=== PATIENT | female | born 1960 | race Caucasian/White ===

== ENCOUNTER 2022-08-27 08:01 | Outpatient (CLI) | payer BC, SELFPAY ==
--- NOTE | 2022-08-27 08:00 | CRLHL7_ITS ---
For Patients: As a result of the 21st Century Cures Act, medical imaging exams and procedure reports are released immediately into your electronic medical record. You may view this report before your referring provider. If you have questions, please contact your health care provider. HISTORY: 61-year-old female. Abdominal pain. Nausea and vomiting. TECHNIQUE: 5.4 millicuries of [id number] was injected intravenously. Images of the liver, gallbladder and abdomen were obtained in the anterior projection for 50 minutes. 1.5 mcg CCK was then administered intravenously and imaging was continued for an additional 30 minutes. FINDINGS: There is good uptake of activity by the hepatocytes. There is visualization of the biliary tree, gallbladder and small bowel. In response to CCK administration, there was a normal gallbladder ejection fraction of 88 percent by 30 minutes. IMPRESSION: 1. There is no evidence of acute or chronic cholecystitis. 2. Normal gallbladder ejection fraction of 88 percent. Dictated by Raghavendra Calixto MD @ 08/27/2022 10:03:44 AM (Electronically Signed)
== END 2022-08-27 08:02 | disposition home or self-care (01) ==
PROVIDERS: PCP Family Medicine; Visit Provider Physician Assistant
DX: R10.9 Unspecified abdominal pain (principal); R11.2 Nausea with vomiting, unspecified
CPT/HCPCS: 78227; A9537

== ENCOUNTER 2023-08-19 08:17 | Outpatient (CLI) | payer BC, SELFPAY ==
--- NOTE | 2023-08-19 08:15 | CRLHL7_ITS ---
For Patients: As a result of the Century Cures Act, medical imaging exams and procedure reports are released immediately into your electronic medical record. You may view this report before your referring provider. If you have questions, please contact your health care provider. Technique: Double-contrast esophagram performed after the uneventful administration of effervescent crystals and thick barium. Fluoroscopy time 1 minute 37 seconds. Indication: Status post Fiona fundoplication Comparison: 05/19/2021 Findings: Postop changes Fiona fundoplication. Smooth narrowing at the fundoplication again noted although the lumen is improved compared to the prior study. Barium tablet does pass through this area although it is delayed. Mild tertiary contractions noted involving the distal esophagus which only lasted briefly. No mucosal lesion or ulcer. Impression: Status post Fiona fundoplication with smooth narrowing at the fundoplication site, as before although the lumen appears somewhat improved compared to the prior study. Barium tablet passes through this area although it is somewhat delayed. Dictated by Andi Still MD @ 08/23/2023 10:23:46 AM (Electronically Signed)
== END 2023-08-19 08:18 | disposition home or self-care (01) ==
PROVIDERS: PCP Family Medicine; Visit Provider Specialist
DX: Z98.890 Other specified postprocedural states (principal)
CPT/HCPCS: 74221